=== PATIENT | male | born 1980 | race African-American/Black ===

== ENCOUNTER 2022-04-11 03:59 | Day surgery (SDC) | payer OTHER ==
[2022-04-07 13:05] VITALS: BMI 24.3
[2022-04-11 13:24] VITALS: RESP 18
[2022-04-11] MEDS ORDERED: MIDAZOLAM HCL 2 MG/2 ML SINGLE DOSE VIAL ONE (17:15)
[2022-04-11 17:55] VITALS: TEMP 98
[2022-04-11 18:57] VITALS: BP 141/81; PULSE 68
== END 2022-04-11 19:15 | disposition home or self-care (01) ==
LOC: JASU-SURG 03:59
PROVIDERS: ATTEND Urology
PROC: 0TF3XZZ Fragmentation in Right Kidney Pelvis, External Approach (ICD-10-PCS; principal; 2022-04-11 15:00)
DX: N20.0 Calculus of kidney (principal)